=== PATIENT | male | born 1985 ===

== ENCOUNTER 2018-12-21 04:13 | Inpatient (IN) | payer OTHER, SELFPAY ==
[2018-12-21] MEDS ORDERED: Adacel (T-DAP) 0.5 ML SYRINGE ONE (04:18)
[2018-12-21 04:44] LABS: #Basophils 0.1 thou/uL (0.0-0.2); #Eosinphils 0.1 thou/uL (0.0-0.7); #Lymphocytes 3.1 thou/uL (1.20-3.40); #Monocytes 0.8 thou/uL (0.11-0.59); #Neutrophils 12.8 thou/uL (1.40-6.50); %Basophils 0.5 % (0.0-1.0); %Eosinophils 0.8 % (0.0-10.0); %Lymphocytes 18.4 % (21.0-51.0); %Monocytes 4.6 % (0.0-10.0); %Neutrophils 75.7 % (42.0-75.0); Hemoglobin 14.8 g/dL (14.0-18.0); INR-International Normal Ratio 1.1; Mean Corpuscular Hemoglobin 32.5 pg (27.0-31.0); Mean Corpuscular Volume 98.6 fL (78.0-98.0); Mean Platelet Volume 7.3 fL (7.4-10.4); PTT 24.3 SEC (22.9-36.1); Platelet Count 237 thou/uL (130-400); RBC Distribution Width 11.2 % (11.5-14.5); Red Blood Cell (RBC) Count 4.56 mill/uL (4.70-6.10); White Blood Cell (WBC) Count 16.9 thou/uL (4.8-10.8)
[2018-12-21] MEDS ORDERED: Midazolam HCl 2 mg/2 ml Vial ONE ×2 (04:53→05:29)
[2018-12-21] MEDS ORDERED: Famotidine/PF 20 mg/2ml Vial ONE (04:53)
[2018-12-21] MEDS ORDERED: Fentanyl 100 MCG/2 ML VIAL ONE ×3 (04:53→08:15)
[2018-12-21 04:56] LABS: ALT (SGPT) 66 U/L (8-55); AST (SGOT) 84 U/L (5-34); Albumin 4.5 g/dL (3.5-5.0); Alcohol 125 mg/dL (Less than 10); Alkaline Phosphatase 49 U/L (40-150); Anion Gap 19 mmol/L (10-20); BUN (Urea Nitrogen) 11 mg/dL (8.9-20.6); Calc. Creatinine Clearance 0 mL/min (70-130); Calcium 9.2 mg/dL (7.8-10.44); Carbon Dioxide 16 mmol/L (22-29); Chloride 109 mmol/L (98-107); Estimated GFR-MDRD Greater than 90; Globulin 2.9 g/dL (2.4-3.5); Lipase 53 U/L (8-78); Potassium 3.7 mmol/L (3.5-5.1); Protein, Total 7.4 g/dL (6.0-8.3); Sodium 140 mmol/L (136-145)
[2018-12-21 05:01] LABS: Glucose 152 mg/dL (70-105)
[2018-12-21] MEDS ORDERED: Ondansetron ODT 4 MG TAB PO PRN (06:35)
[2018-12-21] MEDS ORDERED: Ondansetron PF 4 MG/2 ML Vial IVP PRN (06:35)
[2018-12-21] MEDS ORDERED: Morphine 4 MG/ML VIAL SLOW IVP PRN (06:35)
[2018-12-21] MEDS ORDERED: Acetaminophen 500 MG TAB PO PRN (06:40)
[2018-12-21] MEDS ORDERED: traMADol HCl 50 MG TAB PO PRN (06:40)
[2018-12-21] MEDS ORDERED: Acetaminophen 1,000 MG in Premix Bag 1 BAG IVPB PRN (06:42)
[2018-12-21] MEDS ORDERED: Bacitracin Zinc Ointment 30 gm TUBE ONE (06:55)
--- NOTE | 2018-12-21 07:28 | RAD ---
EXAM: 2 views of the left forearm HISTORY: Radius and ulnar fractures COMPARISON: None FINDINGS: Limited intraoperative fluoroscopic views show plate and screw fixation of the fractures of the midportion of the radius and ulna. IMPRESSION: Status post ORIF of radius and ulnar fractures without evidence of complication.
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
[2018-12-21] MEDS ORDERED: Promethazine HCl 25 MG/ML VIAL SLOW IVP PRN (08:05)
[2018-12-21] MEDS ORDERED: Promethazine HCl 25 MG/ML VIAL IM PRN (08:05)
[2018-12-21] MEDS ORDERED: Ondansetron HCl/PF 4 MG/2 ML Vial IVP PRN (08:05)
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
[2018-12-21] MEDS ORDERED: Promethazine HCl 25 MG/ML VIAL ONE (08:21)
[2018-12-21 10:14] LABS: Lactic Acid 4.4 mmol/L (0.5-2.2)
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
[2018-12-21] MEDS: Morphine 4 MG/ML VIAL SLOW IVP PRN ×3 (11:09→18:11)
[2018-12-21] MEDS ORDERED: Sodium Chloride 0.9% 1,000 ML IV SCH (11:15)
[2018-12-21] MEDS: Lactated Ringer's 1,000 ML IV SCH ×3 (11:35→18:16)
[2018-12-21 11:51] VITALS: BMI 20.9
[2018-12-21] MEDS ORDERED: Sodium Chloride 0.65% Nasal 44 ML BOT EA NARE PRN (12:16)
[2018-12-21] MEDS: Famotidine 20 MG TAB PO SCH ×2 (12:41→21:17)
--- NOTE | 2018-12-21 12:51 | PRG ---
DATE OF SERVICE: 12/21/2018 SUBJECTIVE: Mr. Rodney has been seen by Dr. Davalos. The patient has left orbital fracture. His condylar fracture is nonoperative. Mandible does not need intervention. He will need intervention for his facial fractures. Dr. Davalos has requested Ophthalmology to evaluate the patient. The patient was re-evaluated and he has good vision in his left eye. He has good extraocular movements, left eye with some limitation of lateral gaze. Pupils are reactive to light and round. He does have periorbital swelling. I did talk to Dr. Dixon Silver, who will see the patient in the next 1 or 2 days. Job ID: [id number]
[2018-12-21] MEDS ORDERED: ISOVUE-370 76%-LOCM 1 ML ONE (16:04)
[2018-12-21] MEDS ORDERED: Rocuronium Bromide 10 MG/ML (10ML VIAL) ONE (16:44)
[2018-12-21] MEDS ORDERED: Lidocaine 1% PF 5 ML VIAL ONE (16:44)
[2018-12-21] MEDS ORDERED: Glycopyrrolate 0.2 MG/ML 5 ML SYRINGE ONE (16:44)
[2018-12-21] MEDS ORDERED: PROPOFOL 200 MG/20 ML VIAL ONE (16:44)
[2018-12-21] MEDS ORDERED: Succinylcholine Chloride 20 MG/ML 10 ml SYRINGE FS ONE (16:44)
[2018-12-21] MEDS: Ketorolac Tromethamine 30 MG/ML VIAL IVP PRN (17:12)
[2018-12-22] MEDS: Lactated Ringer's 1,000 ML IV SCH ×4 (02:44→21:51)
[2018-12-22] MEDS: traMADol HCl 50 MG TAB PO PRN ×2 (04:27→13:28)
[2018-12-22 05:59] LABS: #Eosinphils 0.1 thou/uL (0.0-0.7); #Lymphocytes 1.8 thou/uL (1.20-3.40); #Neutrophils 9.6 thou/uL (1.40-6.50); %Basophils 0.3 % (0.0-1.0); %Eosinophils 0.4 % (0.0-10.0); %Lymphocytes 14.3 % (21.0-51.0); %Monocytes 7.8 % (0.0-10.0); %Neutrophils 77.3 % (42.0-75.0); Hemoglobin 13.5 g/dL (14.0-18.0); Mean Corpuscular HGB CONC 32.7 g/dL (32.0-36.0); Mean Corpuscular Hemoglobin 32.5 pg (27.0-31.0); Mean Corpuscular Volume 99.2 fL (78.0-98.0); Mean Platelet Volume 7.5 fL (7.4-10.4); Platelet Count 193 thou/uL (130-400); RBC Distribution Width 11.5 % (11.5-14.5); Red Blood Cell (RBC) Count 4.15 mill/uL (4.70-6.10); White Blood Cell (WBC) Count 12.5 thou/uL (4.8-10.8)
[2018-12-22 06:16] LABS: Lactic Acid 1.4 mmol/L (0.5-2.2)
[2018-12-22 06:19] LABS: Anion Gap 11 mmol/L (10-20); BUN (Urea Nitrogen) 8 mg/dL (8.9-20.6); Calc. Creatinine Clearance 142 mL/min (70-130); Calcium 9.3 mg/dL (7.8-10.44); Carbon Dioxide 21 mmol/L (22-29); Chloride 109 mmol/L (98-107); Estimated GFR-MDRD Greater than 90; Glucose 115 mg/dL (70-105); Phosphorus 2.1 mg/dL (2.3-4.7); Sodium 137 mmol/L (136-145)
[2018-12-22] MEDS ORDERED: Acetaminophen 500 MG TAB PO PRN (08:12)
[2018-12-22] MEDS: Famotidine 20 MG TAB PO SCH ×2 (08:25→21:43)
[2018-12-22] MEDS ORDERED: Cyclobenzaprine 10 MG TAB PO PRN (09:52)
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
[2018-12-22] MEDS: Gabapentin 300 MG CAP PO SCH ×2 (15:53→21:43)
[2018-12-22] MEDS: Triple Antibiotic Opth Oint 3.5 GM TUBE TOP SCH (21:43)
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
[2018-12-23] MEDS: Lactated Ringer's 1,000 ML IV SCH (06:06)
[2018-12-23] MEDS: Gabapentin 300 MG CAP PO SCH ×3 (09:21→21:33)
[2018-12-23] MEDS: Famotidine 20 MG TAB PO SCH ×2 (09:21→21:33)
[2018-12-23] MEDS: Triple Antibiotic Opth Oint 3.5 GM TUBE TOP SCH ×2 (10:09→21:33)
--- NOTE | 2018-12-23 10:26 | OP ---
DATE OF PROCEDURE: 12/21/2018 PREOPERATIVE DIAGNOSES: Complex laceration, upper face, eyebrows, glabella area, 8 cm. Right forearm laceration, elbow area, superficial skin and subcutaneous tissue, 4 cm. Multiple facial fractures. Left radial ulnar fracture by Dr. Clarke. POSTOPERATIVE DIAGNOSES: Complex laceration, upper face, eyebrows, glabella area, 8 cm. Right forearm laceration, elbow area, superficial skin and subcutaneous tissue, 4 cm. Multiple facial fractures. Left radial ulnar fracture Dr. Clarke. PROCEDURE PERFORMED: Closure of facial/forehead laceration, 7.5 cm layered. Closure of right forearm laceration with debridement of skin with meghan. ANESTHESIA: General. DESCRIPTION OF PROCEDURE: The patient was taken to the operating room, where under general anesthesia, facial area of laceration and right elbow were prepared with Betadine and draped in routine fashion. Wound was irrigated over the face. Debris removed. There was no significant contamination. Subcutaneous tissue was approximated with 3-0 Monocryl and skin with continuous suture of 5-0 Prolene. Antibiotic ointment applied. Right forearm laceration was debrided of necrotic skin edges and closed with meghan. The patient tolerated the procedure well. Job ID: [id number]
[2018-12-23] MEDS: Acetaminophen 325 MG TAB PO SCH ×2 (14:27→21:32)
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
[2018-12-23] MEDS ORDERED: Chlorhexidine Gluconate 15 ML UDCUP SSP PRN (21:00)
[2018-12-24] MEDS ORDERED: Lactated Ringer's 1,000 ML IV SCH (00:01)
[2018-12-24] MEDS: Acetaminophen 325 MG TAB PO SCH ×4 (03:53→20:02)
[2018-12-24] MEDS: Sodium Chloride 0.9% 1,000 ML IV SCH ×2 (09:03→20:36)
[2018-12-24] MEDS: Gabapentin 300 MG CAP PO SCH ×3 (09:04→20:02)
[2018-12-24] MEDS: Famotidine 20 MG TAB PO SCH ×2 (09:04→20:02)
[2018-12-24] MEDS: Senokot S 8.6-50 MG TAB PO SCH ×2 (09:04→20:00)
[2018-12-24] MEDS: Triple Antibiotic Opth Oint 3.5 GM TUBE TOP SCH ×2 (09:20→20:02)
[2018-12-24] MEDS ORDERED: Ondansetron PF 4 MG/2 ML Vial ONE (13:58)
[2018-12-24] MEDS ORDERED: ePHEDrine 50 MG/ML VIAL ONE (13:58)
[2018-12-24] MEDS ORDERED: Lidocaine 1% PF 5 ML VIAL ONE (13:58)
[2018-12-24] MEDS ORDERED: Glycopyrrolate 0.2 MG/ML 5 ML SYRINGE ONE (13:58)
[2018-12-24] MEDS ORDERED: Rocuronium Bromide 10 MG/ML (10ML VIAL) ONE (13:58)
[2018-12-24] MEDS ORDERED: Dexamethasone 20 MG/5 ML VIAL ONE (13:58)
[2018-12-24] MEDS ORDERED: PROPOFOL 200 MG/20 ML VIAL ONE (13:58)
[2018-12-24] MEDS ORDERED: Bacitracin Zinc Ointment 30 gm TUBE ONE (15:13)
[2018-12-24] MEDS ORDERED: Ophthalmic Irrigation Solution 15 ML ONE ×2 (15:13→17:46)
[2018-12-24] MEDS ORDERED: Lidocaine 1% w/Epinephrine 1:100K 20 ML VIAL ONE (15:13)
[2018-12-24] MEDS ORDERED: Gentamicin Ophth Ointment 0.3% 3.5 gm Tube ONE (15:13)
[2018-12-24] MEDS ORDERED: Chlorhexidine Gluconate 15 ML UDCUP SSP ONE (15:13)
[2018-12-24] MEDS ORDERED: Fentanyl 100 MCG/2 ML VIAL ONE ×2 (15:26→18:19)
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
[2018-12-24] MEDS ORDERED: Promethazine HCl 25 MG/ML VIAL IM PRN (17:31)
[2018-12-24] MEDS ORDERED: HYDROmorphone 2 MG/ML VIAL SLOW IVP PRN (17:31)
[2018-12-24] MEDS ORDERED: Meperidine HCl/PF 25 MG/ML VIAL SLOW IVP PRN (17:31)
[2018-12-24] MEDS ORDERED: Promethazine HCl 25 MG/ML VIAL SLOW IVP PRN (17:31)
[2018-12-24] MEDS ORDERED: HYDROmorphone 2 MG/ML VIAL ONE ×2 (18:20→18:47)
[2018-12-24] MEDS ORDERED: Promethazine HCl 25 MG/ML VIAL ONE (19:22)
[2018-12-24] MEDS: Ketorolac Tromethamine 30 MG/ML VIAL IVP PRN (20:00)
[2018-12-24] MEDS: Ibuprofen 600 MG TAB PO PRN (20:01)
[2018-12-24] MEDS: traMADol HCl 50 MG TAB PO PRN (20:01)
[2018-12-24] MEDS: Chlorhexidine Gluconate 15 ML UDCUP SSP SCH (20:02)
--- NOTE | 2018-12-24 20:46 | CT ---
CT FACIAL BONES: 12/24/18 INDICATIONS: Open reduction internal fixation left cheek. Correlation made to CT facial bones, 12/21/18. FINDINGS/IMPRESSION: Fractures of the left orbit, left maxilla, left zygoma, left Pterygoid, and left mandible all again n oted. Comminuted displaced fracture of the left maxillary sinus again noted involving the lateral wal l and the floor of the left orbit. Opacification with air fluid level in both maxillary sinuses and e thmoid air cells. There has been reduction. the depressed zygoma fracture has been reduced and is now in more anatomic alignment. There has been some reduction in the maxillary sinus and orbital floor fractures. POS: [facility]
[2018-12-25] MEDS: Acetaminophen 325 MG TAB PO SCH ×5 (03:59→20:14)
[2018-12-25] MEDS: Ketorolac Tromethamine 30 MG/ML VIAL IVP PRN (05:33)
[2018-12-25] MEDS: Ibuprofen 600 MG TAB PO PRN ×2 (05:34→15:48)
[2018-12-25] MEDS: traMADol HCl 50 MG TAB PO PRN ×2 (05:34→20:22)
[2018-12-25 06:10] LABS: #Lymphocytes 0.7 thou/uL (1.20-3.40); #Monocytes 0.6 thou/uL (0.11-0.59); #Neutrophils 7.5 thou/uL (1.40-6.50); %Basophils 0.1 % (0.0-1.0); %Eosinophils 0.2 % (0.0-10.0); %Lymphocytes 8.3 % (21.0-51.0); %Monocytes 6.8 % (0.0-10.0); %Neutrophils 84.7 % (42.0-75.0); Hemoglobin 12.4 g/dL (14.0-18.0); Mean Corpuscular HGB CONC 33.7 g/dL (32.0-36.0); Mean Corpuscular Hemoglobin 32.8 pg (27.0-31.0); Mean Corpuscular Volume 97.3 fL (78.0-98.0); Mean Platelet Volume 7.7 fL (7.4-10.4); Platelet Count 199 thou/uL (130-400); RBC Distribution Width 10.7 % (11.5-14.5); Red Blood Cell (RBC) Count 3.79 mill/uL (4.70-6.10); White Blood Cell (WBC) Count 8.8 thou/uL (4.8-10.8)
[2018-12-25 06:36] LABS: ALT (SGPT) 31 U/L (8-55); AST (SGOT) 36 U/L (5-34); Albumin 3.6 g/dL (3.5-5.0); Alkaline Phosphatase 44 U/L (40-150); Anion Gap 14 mmol/L (10-20); BUN (Urea Nitrogen) 11 mg/dL (8.9-20.6); Calc. Creatinine Clearance 158 mL/min (70-130); Calcium 9.2 mg/dL (7.8-10.44); Carbon Dioxide 22 mmol/L (22-29); Chloride 105 mmol/L (98-107); Estimated GFR-MDRD Greater than 90; Globulin 2.6 g/dL (2.4-3.5); Glucose 116 mg/dL (70-105); Magnesium 1.9 mg/dL (1.6-2.6); Potassium 4.5 mmol/L (3.5-5.1); Protein, Total 6.2 g/dL (6.0-8.3); Sodium 136 mmol/L (136-145)
[2018-12-25] MEDS: Chlorhexidine Gluconate 15 ML UDCUP SSP SCH ×2 (09:14→20:14)
[2018-12-25] MEDS: Senokot S 8.6-50 MG TAB PO SCH ×2 (09:14→20:14)
[2018-12-25] MEDS: Triple Antibiotic Opth Oint 3.5 GM TUBE TOP SCH ×2 (09:14→20:15)
[2018-12-25] MEDS: Gabapentin 300 MG CAP PO SCH ×4 (09:15→20:14)
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
[2018-12-26] MEDS: Acetaminophen 325 MG TAB PO SCH ×2 (02:15→09:11)
[2018-12-26 05:41] VITALS: TEMP 98.9
[2018-12-26] MEDS: Ibuprofen 600 MG TAB PO PRN (06:16)
[2018-12-26] MEDS: traMADol HCl 50 MG TAB PO PRN (06:16)
[2018-12-26 07:51] VITALS: BP 119/70
[2018-12-26] MEDS: Chlorhexidine Gluconate 15 ML UDCUP SSP SCH (09:11)
[2018-12-26] MEDS: Gabapentin 300 MG CAP PO SCH (09:12)
[2018-12-26] MEDS: Triple Antibiotic Opth Oint 3.5 GM TUBE TOP SCH (09:12)
[2018-12-26] MEDS: Senokot S 8.6-50 MG TAB PO SCH (09:12)
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
== END 2018-12-26 14:28 | disposition home or self-care (01) | DRG 511 ==
LOC: ERS 04:13 → SURG A 08:03
PROVIDERS: ADMIT Specialist; ATTEND Specialist
PROC: 0PSL04Z Reposition Left Ulna with Internal Fixation Device, Open Approach (ICD-10-PCS; principal; 2018-12-21)
PROC: 0PSJ04Z Reposition Left Radius with Internal Fixation Device, Open Approach (ICD-10-PCS; 2018-12-21)
PROC: 0JQ13ZZ Repair Face Subcutaneous Tissue and Fascia, Percutaneous Approach (ICD-10-PCS; 2018-12-21)
PROC: 0HBDXZZ Excision of Right Lower Arm Skin, External Approach (ICD-10-PCS; 2018-12-21)
DX: S52.92XA Unspecified fracture of left forearm, initial encounter for closed fracture (principal); S22.32XA Fracture of one rib, left side, initial encounter for closed fracture; S02.32XA Fracture of orbital floor, left side, initial encounter for closed fracture; S02.40DA Maxillary fracture, left side, initial encounter for closed fracture; S02.40FA Zygomatic fracture, left side, initial encounter for closed fracture; S02.19XA Other fracture of base of skull, initial encounter for closed fracture; S27.321A Contusion of lung, unilateral, initial encounter; S52.202A Unspecified fracture of shaft of left ulna, initial encounter for closed fracture; F17.210 Nicotine dependence, cigarettes, uncomplicated; S42.132A Displaced fracture of coracoid process, left shoulder, initial encounter for closed fracture; S01.112A Laceration without foreign body of left eyelid and periocular area, initial encounter; V89.2XXA Person injured in unspecified motor-vehicle accident, traffic, initial encounter
CPT/HCPCS: 36415; 70450; 70486; 70487; 71045; 71260; 72125; 74177; 76000; 76377; 80048; 80053; 80307; 83605; 83690; 83735; 84100; 85025; 85610; 85730; 86850; 86900; 86901; 90471; 90715; 93005; 94760; 96365; C1713; G0390; J0131; J0690; J1100; J1170; J1885; J2001; J2250; J2270; J2405; J2550; J2704; J3010; J3490; Q9966; S0028